=== PATIENT | female | born 1960 | race Caucasian/White ===

== ENCOUNTER 2017-12-30 16:32 | Emergency (ER) | payer OTHER ==
[2017-12-30] MEDS ORDERED: Ketorolac Tromethamine 30 MG/ML VIAL ONE (17:07)
--- NOTE | 2017-12-30 17:27 | RAD ---
UPRIGHT PORTABLE CHEST 1 VIEW: Date: 12/30/17 HISTORY: 57-year-old female with history of injury from a fall at home and associated trauma. FINDINGS: Heart size is within normal limits. The lungs are clear. No confluent pneumonia, overt edema, or pleu ral effusion. IMPRESSION: No acute intrathoracic disease. POS: [facility]
--- NOTE | 2017-12-30 17:30 | RAD ---
2 VIEWS LEFT FOREARM: Date: 12/30/17 INDICATION: Trauma. COMPARISON: None. FINDINGS: There is a comminuted interarticular distal radius fracture with dorsal and radial displacement of th e distal fracture fragment one cortex width. There is also slight dorsal angulation of the distal fra cture fragment. There is a mildly displaced ulnar styloid process fracture. No additional fracture is evident. IMPRESSION: Distal both bone forearm fracture. POS: [facility]
--- NOTE | 2017-12-30 17:32 | CT ---
BRAIN CT WITHOUT IV CONTRAST: Date: 12/30/17 HISTORY: 57-year-old female with history of injury from trauma, fell. FINDINGS: No focal mass or midline shift. No intra or extra-axial hemorrhage. Sinuses and mastoids are clear. IMPRESSION: No acute intracranial process. No mass or bleed. POS: [facility]
--- NOTE | 2017-12-30 17:33 | RAD ---
3 VIEWS LEFT WRIST: Date: 12/30/17 INDICATION: Fall at home. COMPARISON: None. FINDINGS: There is a comminuted, dorsally angulated, mildly displaced distal radius fracture. There is a mildly displaced ulnar styloid process fracture. Hand positioning slightly limits evaluation of the carpus. No definite acute osseous abnormality is evident. IMPRESSION: Distal radial ulnar fracture as above. POS: [facility]
--- NOTE | 2017-12-30 17:34 | RAD ---
2 VEIWS RIGHT FOREARM: Date: 12/30/17 INDICATION: History of fall. COMPARISON: None. FINDINGS: No acute fracture or subluxation is evident. Radiocapitellar alignment is within normal limits. No ac [place] osseous abnormality is evident. IMPRESSION: No acute osseous abnormality. POS: [facility]
[2017-12-30] MEDS ORDERED: KETAMINE 100 MG/ML (5ML VIAL) ONE ×2 (18:49→19:55)
--- NOTE | 2017-12-30 19:01 | CT ---
CT CERVICAL SPINE WITHOUT CONTRAST: 12/30/17 INDICATION: Fall with neck pain. COMPARISON: None. FINDINGS: No acute fracture or subluxation is evident. The osseous central canal is preserved. Craniocervical j unction appears within normal limits. The lung apices are clear. IMPRESSION: No acute osseous abnormality. POS: [facility]
--- NOTE | 2017-12-30 21:00 | RAD ---
TWO VIEWS LEFT WRIST: 12/30/17 INDICATION: Status post reduction. FINDINGS: Since the comparison examination, there has been improved alignment in terms of the dorsal angulation involving the intra-articular distal radius fracture. There is improved alignment of the ulnar stylo id process fracture. Overlying splint material limits image detail. IMPRESSION: Interval reduction and splinting of the patient's distal both bone forearm fracture. POS: [facility]
== END 2017-12-30 21:32 | disposition home or self-care (01) ==
LOC: ERS 16:32
DX: S52.501A Unspecified fracture of the lower end of right radius, initial encounter for closed fracture (principal); S52.612A Displaced fracture of left ulna styloid process, initial encounter for closed fracture; F32.9 Major depressive disorder, single episode, unspecified; F17.200 Nicotine dependence, unspecified, uncomplicated; W18.09XA Striking against other object with subsequent fall, initial encounter
CPT/HCPCS: 25565; 70450; 71045; 72125; 96372; 99152; J1885

== ENCOUNTER 2018-01-08 12:26 | Day surgery (SDC) | payer OTHER ==
[2018-01-07 15:53] VITALS: BMI 21.9
[2018-01-08] MEDS ORDERED: CEFAZOLIN 2 GM/50 ML BAG ONE (13:10)
[2018-01-08] MEDS ORDERED: Bupivacaine HCl 0.5%/Epinephrine 1:200,000/PF 30 ml Vial ONE (13:17)
[2018-01-08] MEDS ORDERED: Midazolam HCl 2 mg/2 ml Vial ONE (13:44)
[2018-01-08] MEDS ORDERED: Fentanyl 100 MCG/2 ML VIAL ONE (13:44)
[2018-01-08] MEDS ORDERED: Ondansetron PF 4 MG/2 ML Vial ONE (14:52)
[2018-01-08] MEDS ORDERED: Lidocaine 1% PF 5 ML VIAL ONE (14:52)
[2018-01-08] MEDS ORDERED: Dexamethasone 20 MG/5 ML VIAL ONE (14:52)
[2018-01-08] MEDS ORDERED: PROPOFOL 200 MG/20 ML VIAL ONE (14:52)
[2018-01-08] MEDS ORDERED: Ketorolac Tromethamine 30 MG/ML VIAL ONE (14:52)
--- NOTE | 2018-01-08 18:44 | OP ---
DATE OF PROCEDURE: 01/08/2018 OPERATION: Left distal radius fracture ORIF. PREOPERATIVE DIAGNOSIS: Left displaced distal radius fracture. POSTOPERATIVE DIAGNOSIS: Left displaced distal radius fracture. COMPLICATIONS: None. ESTIMATED BLOOD LOSS: Minimal. SURGEON: Bismark Melton M.D. NURSE TECH: Michael Fine PA-C. IMPLANTS: Synthes volar distal radius plate, 3-hole, narrow. INDICATIONS: Ms. Gusman is a 57-year-old female who fell. She fractured her distal radius. She was i ndicated for open reduction internal fixation to restore anatomic alignment and promote healing. Ris ks were reviewed in detail. She elected to proceed. Risks include nerve or vascular injury, infecti on, pain, scarring, bleeding, hardware failure and others. DESCRIPTION OF PROCEDURE: Ms. Gusman was identified in the preoperative holding area. Her correct ext remity was marked. She was carried to the operating room. She was positioned supine. General anest hesia was induced. A multidisciplinary timeout was performed. The left upper extremity was prepped and draped in sterile fashion. We began the procedure with a volar approach to the distal radius. We dissected down through the sub cutaneous tissues to the FCR tendon. The tendon sheath was opened. We exposed the underlying pronat or quadratus which was elevated from the bone. We exposed the fracture. The fracture was reduced us ing a [place] elevator. Once we had an anatomic reduction, we proceeded to place our volar distal radi us plate. This was a 3-hole plate. We placed a proximal screw followed by multiple distal locking s crews and finished the proximal screws. We took x-ray images confirming hardware placement reduction and alignment. All were acceptable. We irrigated and closed with 2-0 Vicryl suture and carlos eduardo for the skin. A sterile dressing was applied. The patient was taken to the recovery room in good condi tion without complication.
--- NOTE | 2018-01-08 19:21 | RAD ---
TWO VIEWS RIGHT WRIST: 01/08/18 HISTORY: Open reduction internal fixation. AP and lateral views of the right wrist demonstrate placement of plates and screws across the distal right radial fracture. Post reduction radiographs demonstrate good anatomic alignment. IMPRESSION: Open reduction internal fixation distal right radial fracture. POS: [facility]
== END 2018-01-08 18:05 | disposition home or self-care (01) ==
LOC: SDC 12:26
PROVIDERS: ATTEND Orthopaedic Surgery
PROC: 0PSJ04Z Reposition Left Radius with Internal Fixation Device, Open Approach (ICD-10-PCS; principal; 2018-01-08)
DX: S52.532A Colles' fracture of left radius, initial encounter for closed fracture (principal); W19.XXXA Unspecified fall, initial encounter
CPT/HCPCS: 76000; C1713; J0670; J1100; J1885; J2001; J2250; J2405; J2704; J3010

== ENCOUNTER 2018-08-11 12:47 | Emergency (ER) | payer OTHER | END 2018-08-11 13:42 | disposition home or self-care (01) | LOC: ERS 12:47 | DX: N76.4 Abscess of vulva (principal); F32.9 Major depressive disorder, single episode, unspecified; F17.200 Nicotine dependence, unspecified, uncomplicated | CPT/HCPCS: 99283 ==

== ENCOUNTER 2018-08-18 13:21 | Emergency (ER) | payer OTHER ==
[2018-08-18] MEDS ORDERED: Ciprofloxacin HCL/Dexameth Otic Drops 7.5 ml Bottle ONE (13:59)
== END 2018-08-18 14:34 | disposition home or self-care (01) ==
LOC: ERS 13:21
DX: H60.92 Unspecified otitis externa, left ear (principal); F41.9 Anxiety disorder, unspecified; F32.9 Major depressive disorder, single episode, unspecified; F17.200 Nicotine dependence, unspecified, uncomplicated; Z79.2 Long term (current) use of antibiotics
CPT/HCPCS: 99283

== ENCOUNTER 2018-08-21 14:28 | Emergency (ER) | payer OTHER | END 2018-08-21 15:26 | disposition home or self-care (01) | LOC: ERS 14:28 | DX: H60.92 Unspecified otitis externa, left ear (principal); R23.4 Changes in skin texture; F41.9 Anxiety disorder, unspecified | CPT/HCPCS: 99282 ==

== ENCOUNTER 2019-12-14 13:35 | Emergency (ER) | payer OTHER | END 2019-12-14 14:48 | disposition home or self-care (01) | LOC: ERS 13:35 | DX: F42.2 Mixed obsessional thoughts and acts (principal); R21 Rash and other nonspecific skin eruption; F41.9 Anxiety disorder, unspecified; F32.9 Major depressive disorder, single episode, unspecified; Z79.899 Other long term (current) drug therapy | CPT/HCPCS: 99282 ==

== ENCOUNTER 2025-01-29 09:02 | Emergency (ER) | payer MEDICARE, OTHER | END 2025-01-29 12:39 | disposition home or self-care (01) | LOC: ERS 09:02 | DX: M25.531 Pain in right wrist (principal); F17.290 Nicotine dependence, other tobacco product, uncomplicated; W19.XXXA Unspecified fall, initial encounter | CPT/HCPCS: 73110; J2270; Q0162; 96372; 99283 ==